=== PATIENT | female | born 1985 | race African-American/Black ===

== ENCOUNTER → 2018-02-13 | Outpatient (CLI) | payer OTHER ==
[~2018-02-13] MED LIST: IBUPROFEN 600600 M1 PO; IRON325 PO; NAPROSYN500 MG PO; NOHOMEMEDICATIONS
[2018-02-13 12:00] VITALS: BP 124/75
[2018-02-13 13:10] VITALS: BP 113/76
[2018-02-13 13:20] VITALS: BP 113/76
== END ==
LOC: OPONC 11:36
DX: D50.9 Iron deficiency anemia, unspecified (principal)
CPT/HCPCS: 95000

== ENCOUNTER → 2018-02-14 | Outpatient (CLI) | payer OTHER ==
[2018-02-14 11:20] VITALS: BP 108/57
[2018-02-14 12:30] VITALS: BP 116/67
== END ==
LOC: OPONC 00:58
DX: D50.9 Iron deficiency anemia, unspecified (principal)
CPT/HCPCS: 95000

== ENCOUNTER → 2018-02-15 | Outpatient (CLI) | payer OTHER ==
[2018-02-15 11:00] VITALS: BP 117/65
[2018-02-15 11:45] VITALS: BP 110/60
== END ==
LOC: OPONC 01:07
DX: D50.9 Iron deficiency anemia, unspecified (principal)
CPT/HCPCS: 95000

== ENCOUNTER → 2018-02-18 | Outpatient (CLI) | payer OTHER ==
[2018-02-18 11:10] VITALS: BP 127/64
[2018-02-18 12:10] VITALS: BP 108/69
== END ==
LOC: OPONC 01:42
DX: D50.9 Iron deficiency anemia, unspecified (principal)
CPT/HCPCS: 95000

== ENCOUNTER 2018-04-14 11:54 | Emergency (ER) | payer OTHER ==
[~2018-04-14] VITALS: Ht 160 cm; Wt 68.0 kg
[2018-04-14 12:19] LABS: URINE BLOOD 3+ (Negative); URINE GLUCOSE-RANDOM* NEGATIVE (Negative); URINE KETONES 1+ (Negative); URINE LEUKOCYTES-REFLEX TRACE (Negative); URINE NITRITE-REFLEX NEGATIVE (Negative); URINE PROTEIN (DIPSTICK) 2+ (Negative); URINE SPECIFIC GRAVITY >= 1.030 (1.005-1.035); URINE UROBILINOGEN 0.2 E.U./dl (0.2-1.0)
[2018-04-14 12:20] LABS: URINE CLARITY TURBID; URINE COLOR RED
[2018-04-14 12:22] LABS: ICTOTEST (BILI CONFIRMATORY) Negative (Negative); URINE BILIRUBIN NEGATIVE (Negative)
[2018-04-14 12:30] LABS: CASTS None Seen /LPF (None Seen); SQUAMOUS 0-3 Few /LPF (0-3); URINE RBC >20 Many /HPF (0-2); URINE WBC-REFLEX 0-5 Rare /HPF (0-5)
[2018-04-14 12:31] LABS: BACTERIA-REFLEX 1-9 Few /HPF (None Seen); CRYSTALS None Seen /LPF (None Seen); MUCUS 0-3 Light strn/LPF (None Seen)
[2018-04-14 12:33] LABS: HEMATOCRIT 39.6 % (37.0-47.0); HEMOGLOBIN 13.4 gm/dL (12.0-15.0); MCH 28.7 pg (26.0-34.0); MCHC 33.9 g/dL (28.0-37.0); MCV 84.8 fL (80.0-100.0); PLATELET COUNT 220 thou/uL (150-400); RBC 4.67 mil/uL (4.20-5.00); WBC 12.2 thou/uL (4.0-11.0)
[2018-04-14 12:37] LABS: CALCIUM 9.1 mg/dL (8.5-10.1); CREATININE 0.7 mg/dL (0.6-1.0); POTASSIUM 3.1 mmol/L (3.5-5.1)
[2018-04-14 13:12] LABS: ABSOLUTE NEUTROPHILS 9.4 thou/uL (1.4-8.2)
[2018-04-14 13:13] LABS: ANISOCYTOSIS 1+
[2018-04-14] MEDS ORDERED: FLAGYL500 M1 PO (14:19)
[2018-04-14 14:39] VITALS: BP 124/80
== END 2018-04-14 14:40 | disposition home or self-care (01) ==
LOC: ER 11:54
PROVIDERS: Physician Assistant
DX: A59.9 Trichomoniasis, unspecified (principal); N92.0 Excessive and frequent menstruation with regular cycle; Z20.2 Contact with and (suspected) exposure to infections with a predominantly sexual mode of transmission

== ENCOUNTER 2018-12-23 12:35 | Emergency (ER) | payer OTHER ==
[~2018-12-23] VITALS: Ht 160 cm; Wt 57.6 kg
[~2018-12-23 12:35] MED LIST changes: +FLAGYL500 M1 PO
[2018-12-23 13:40] LABS: ABSOLUTE NEUTROPHILS 2.3 thou/uL (1.4-8.2); BASOPHILS 1.4 % (0.0-2.0); EOSINOPHILS 2.8 % (0.0-3.0); HEMATOCRIT 36.2 % (37.0-47.0); LYMPHOCYTES 29.3 % (24.0-44.0); MCH 28.7 pg (26.0-34.0); PLATELET COUNT 239 thou/uL (150-400); POLYS 58.5 % (36.0-66.0); RBC 4.16 mil/uL (4.20-5.00); RDW 13.5 % (10.5-14.5); WBC 3.9 thou/uL (4.0-11.0)
[2018-12-23 13:47] LABS: CALCIUM 8.9 mg/dL (8.5-10.1); CREATININE 0.6 mg/dL (0.6-1.0); POTASSIUM 3.6 mmol/L (3.5-5.1)
[2018-12-23 14:13] LABS: ANISOCYTOSIS 2+; HYPOCHROMASIA 1+; POLYCHROMASIA OCCASIONAL
[2018-12-23 14:40] VITALS: BP 121/71
--- NOTE | 2018-12-24 08:38 | EKG ---
[place] [address] [facility] [place] [address] ELECTROCARDIOGRAM REPORT Name: HERRERA ESPINOZA Room #: [facility]ENTERJenniferJennifer#: [id number] ������������������ Admission: 12/23/18 ������������������ Attend Phys: Discharge: 12/23/18 ������������������ Date of : 87 Report #: [id number] ����������������������������������������������������������������� [id number] THIS REPORT FOR: //name// [facility] ED Test Date: 2018-12-23 Test Time: 13:27:06 Pat Name: HERRERA ESPINOZA Department: Room: Gender: F 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 : 1985 Requested By: Betsey Otto Order Number: [id number] MD: Aleksey Diaz Measurements Intervals [place] Rate: 71 P: 87 [place]: 175 QRS: 47 QRSD: 69 T: 31 QT: 386 QTc: 420 Interpretive Statements Sinus rhythm Normal tracing No previous ECG available for comparison Electronically Signed On 12-24-2018 8:38:40 CDT by Aleksey Diaz [email or web address] ��������������������������������������������� <ELECTRONICALLY SIGNED> ���������������������������������������� By: Aleksey Diaz MD, [facility] ��������������������������������������������� 12/24/18 0838 1327 1327 Aleksey Diaz MD, FACC /EPI
== END 2018-12-23 14:50 | disposition home or self-care (01) ==
LOC: ER 12:35
PROVIDERS: Nurse Practitioner
DX: R42 Dizziness and giddiness (principal); Z86.2 Personal history of diseases of the blood and blood-forming organs and certain disorders involving the immune mechanism

== ENCOUNTER 2019-03-18 18:51 | Emergency (ER) | payer OTHER ==
[~2019-03-18] VITALS: Ht 152.4 cm; Wt 59.0 kg
[2019-03-18 18:51] VITALS: BP 119/70
[2019-03-18 19:14] LABS: URINE BILIRUBIN NEGATIVE (Negative); URINE BLOOD 3+ (Negative); URINE COLOR YELLOW; URINE GLUCOSE-RANDOM* NEGATIVE (Negative); URINE KETONES NEGATIVE (Negative); URINE NITRITE-REFLEX NEGATIVE (Negative); URINE PROTEIN (DIPSTICK) TRACE (Negative); URINE SPECIFIC GRAVITY 1.015 (1.005-1.035); URINE UROBILINOGEN 0.2 E.U./dl (0.2-1.0)
[2019-03-18 19:17] LABS: URINE CLARITY HAZY; URINE LEUKOCYTES-REFLEX 1+ (Negative)
[2019-03-18 19:25] LABS: BACTERIA-REFLEX >30 Many /HPF (None Seen); CASTS None Seen /LPF (None Seen); CRYSTALS None Seen /LPF (None Seen); SQUAMOUS 4-10 Moderate /LPF (0-3); URINE RBC >20 Many /HPF (0-2); URINE WBC-REFLEX 6-15 Few /HPF (0-5)
[2019-03-18] MEDS ORDERED: KEFLEX500 M1 PO (21:00)
== END 2019-03-18 21:30 | disposition home or self-care (01) ==
LOC: ER 18:51
PROVIDERS: Physician Assistant
DX: N39.0 Urinary tract infection, site not specified (principal); N93.9 Abnormal uterine and vaginal bleeding, unspecified

== ENCOUNTER 2019-11-18 14:50 | Emergency (ER) | payer OTHER ==
[~2019-11-18] VITALS: Ht 152.4 cm; Wt 62.1 kg
[~2019-11-18 14:50] MED LIST changes: +KEFLEX500 M1 PO
[2019-11-18 15:19] LABS: URINE BILIRUBIN NEGATIVE (Negative); URINE BLOOD NEGATIVE (Negative); URINE COLOR YELLOW; URINE GLUCOSE-RANDOM* NEGATIVE (Negative); URINE KETONES NEGATIVE (Negative); URINE NITRITE-REFLEX NEGATIVE (Negative); URINE PROTEIN (DIPSTICK) TRACE (Negative)
[2019-11-18 15:22] LABS: URINE CLARITY HAZY; URINE LEUKOCYTES-REFLEX 2+ (Negative)
[2019-11-18 15:40] LABS: CASTS None Seen /LPF (None Seen); CRYSTALS None Seen /LPF (None Seen); SQUAMOUS 4-10 Moderate /LPF (0-3)
[2019-11-18 15:41] LABS: BACTERIA-REFLEX 1-9 Few /HPF (None Seen); URINE RBC None Seen /HPF (0-2)
[2019-11-18 15:43] LABS: ABSOLUTE NEUTROPHILS 8.1 thou/uL (1.4-8.2); BASOPHILS 0.7 % (0.0-2.0); EOSINOPHILS 2.6 % (0.0-3.0); HEMATOCRIT 38.1 % (37.0-47.0); HEMOGLOBIN 12.6 gm/dL (12.0-15.0); LYMPHOCYTES 15.7 % (24.0-44.0); MCH 27.5 pg (26.0-34.0); MCV 83.2 fL (80.0-100.0); PLATELET COUNT 286 thou/uL (150-400); RBC 4.58 mil/uL (4.20-5.00); RDW 14.9 % (10.5-14.5); WBC 10.9 thou/uL (4.0-11.0)
[2019-11-18 16:23] LABS: ALBUMIN 3.4 g/dL (3.4-5.0); ANION GAP 7 mmol/L (7-16); BUN 10 mg/dL (7-18); CALCIUM 8.6 mg/dL (8.5-10.1); CHLORIDE 99 mmol/L (98-107); CO2 27 mmol/L (21-32); CREATININE 0.8 mg/dL (0.6-1.0); GLUCOSE 93 mg/dL (74-106); POTASSIUM 3.7 mmol/L (3.5-5.1); SGOT 47 U/L (15-37); SGPT 38 U/L (30-65); SODIUM 133 mmol/L (136-145); TOTAL BILIRUBIN 0.2 mg/dL (0.2-1.0); TOTAL PROTEIN 8.1 g/dL (6.4-8.2); TROPONIN-I <0.06 ng/mL (<0.06)
[2019-11-18] MEDS ORDERED: MACROBID 100 M100 M1 PO (17:00)
[2019-11-18] MEDS ORDERED: FLAGYL500 M1 PO (17:00)
[2019-11-18 17:10] VITALS: BP 106/64
--- NOTE | 2019-11-19 07:28 | EKG ---
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
== END 2019-11-18 17:10 | disposition home or self-care (01) ==
LOC: ER 14:50
PROVIDERS: Physician Assistant
DX: R42 Dizziness and giddiness (principal); N39.0 Urinary tract infection, site not specified; A59.9 Trichomoniasis, unspecified; H53.8 Other visual disturbances

== ENCOUNTER 2020-11-11 17:48 | Emergency (ER) | payer OTHER ==
[~2020-11-11] VITALS: Ht 152.4 cm; Wt 59.9 kg
[~2020-11-11 17:48] MED LIST changes: +MACROBID 100 M100 M1 PO
[2020-11-11] MEDS ORDERED: NORCO5 PO (20:20)
[2020-11-11] MEDS ORDERED: CYCLOBENZAPRINE5 MG PO (20:20)
[2020-11-11] MEDS ORDERED: MEDROLDOSEPACK PO (20:20)
[2020-11-11 20:30] VITALS: BP 123/77
== END 2020-11-11 20:30 | disposition home or self-care (01) ==
LOC: ER 17:48
DX: M54.41 Lumbago with sciatica, right side (principal)